=== PATIENT | female | born 1940 | race Two or more races ===

== ENCOUNTER 2019-08-26 06:36 | Inpatient (IN) | payer OTHER ==
[~2019-08-26] VITALS: Ht 152.4 cm; Wt 123.8 kg
[2019-08-26] VITALS (18 sets, daily range): BP systolic 68–166; BP diastolic 34–95
--- NOTE | 2019-08-26 06:58 | NUR ---
BIBRA FOR S/P FOUND ON THE FLOOR. PT DENIED ANY PAIN OR DISCOMFORT AT THIS TIME. DENIED HITTING HER HEAD. -KO. PLACED ON A MONITOR
[2019-08-26] MEDS ORDERED: ADENOSINE 6 MG/2 ML VIAL ONE ×3 (06:59→08:20)
[2019-08-26] MEDS ORDERED: ADENOSINE 6 MG/2 ML VIAL IVP ONE ×2 (07:00→08:30)
--- NOTE | 2019-08-26 07:07 | NUR ---
ADENOSINE GIVEN ORDERED W/ MD AT THE BED SIDE AND PT ON CONT HEART MONITORING .
[2019-08-26 07:08] LABS: BASOPHILS # (AUTO) 0.1 /CMM (0.0-0.2); BASOPHILS % (AUTO) 0.4 % (0.0-2.0); HEMATOCRIT 28 % (33-45); HEMOGLOBIN 9.2 g/dL (11.5-14.8); LYMPHOCYTES # (AUTO) 0.2 /CMM (0.8-4.8); LYMPHOCYTES % (AUTO) 0.9 % (20.0-44.0); MEAN CORPUSCULAR HGB CONC 33 g/dl (31.0-36.0); MEAN CORPUSCULAR VOLUME 87 fL (82-100); MONOCYTES # (AUTO) 0.4 /CMM (0.1-1.30); MONOCYTES % (AUTO) 2.3 % (2.0-12.0); NEUTROPHILS # (AUTO) 17.9 /CMM (1.8-8.9); NEUTROPHILS % (AUTO) 96.4 % (43.0-81.0); PLATELET COUNT (AUTO) 179 /CMM (150-450); RED BLOOD CELL COUNT(AUTO) 3.24 MIL/uL (4.0-5.2); WHITE BLOOD COUNT (AUTO) 18.6 K/uL (4.3-11.0)
--- NOTE | 2019-08-26 07:10 | NUR ---
END TIME FOR NS: [id number]
--- NOTE | 2019-08-26 07:32 | NUR ---
URINE COLLECTED AND SENT TO THE LAB
[2019-08-26 07:35] LABS: CALCIUM, SERUM 7.9 mg/dL (8.5-10.1); CARBON DIOXIDE 19 mmol/L (21-32); CHLORIDE 98 mmol/L (98-107); CREATININE 3.2 mg/dL (0.6-1.3); GLUCOSE 173 mg/dL (74-106); POTASSIUM 3.9 mmol/L (3.5-5.1); SODIUM SERUM 132 mmol/L (136-145); UREA NITROGEN, BLOOD 43 mg/dL (7-18)
[2019-08-26 07:39] LABS: ALANINE AMINOTRANSFERASE 47 U/L (12-78); ALBUMIN 2.3 g/dL (3.4-5.0); ALKALINE PHOSPHATASE 86 U/L (46-116); ASPARTATE AMINOTRANSFERASE 77 U/L (15-37); BILIRUBIN,DIRECT 0.8 mg/dL (0.0-0.2); BILIRUBIN,TOTAL 1.5 mg/dL (0.2-1.0)
--- NOTE | 2019-08-26 07:40 | NUR ---
PT REMAINED ON CONTINUOUS MONITORING AND IVF THERAPY TO MANAGE THE BP. PT REPORTED FEELING MUCH BETTER.
[2019-08-26 07:43] LABS: APPEARANCE,URINE Clear (CLEAR); BILIRUBIN,URINE SMALL (NEGATIVE); BLOOD, URINE Trace-lysed Ery/uL (NEGATIVE); COLOR,URINE Yellow (YELLOW); KETONES,URINE Trace (NEGATIVE); LEUKOCYTE ESTERASE ,URINE Large (NEGATIVE); NITRITE, URINE Negative (NEGATIVE); PROTEIN,URINE 100 mg/dl (NEGATIVE); UGLUCOSE Negative (NEGATIVE)
[2019-08-26 07:44] LABS: BACTERIA,URINE 1+ /HPF (None Seen); PH,URINE >9.0 (5.0-8.0); WBC,URINE 21-50 /HPF (0-3)
[2019-08-26 07:45] LABS: URINE AMORPHOUS PHOSPHATES Few /HPF (None Seen)
--- NOTE | 2019-08-26 07:52 | NUR ---
The patient's heart rate went up - 160's - the patient denies pain or SOB The ER physician was notofied - aware - NS 2 liter on going
[2019-08-26] MEDS ORDERED: VANCOMYCIN 1 GM in IV D5W 250 ML IV ONE (08:00)
[2019-08-26] MEDS ORDERED: NOREPINEPHRINE 8 MG in IV NS 0.9% 250 ML IV ONE (08:00)
[2019-08-26] MEDS ORDERED: CEFTRIAXONE 1GM BAG (ER ONLY) 1 GM/50 ML PIGGYBACK IV ONE (08:00)
[2019-08-26] MEDS ORDERED: IV NS 0.9% 2,000 ML IV ONE (08:00)
--- NOTE | 2019-08-26 08:00 | NUR ---
PT PARTNER CALLED [facility]:[phone] CELLPHONE:[phone]
[2019-08-26] MEDS ORDERED: CEFTRIAXONE 1GM BAG (ER ONLY) 50 ML IV ONE (08:19)
[2019-08-26] MEDS ORDERED: NOREPINEPHRINE 8 MG in IV D5W 500 ML IV PRN (08:30)
--- NOTE | 2019-08-26 08:34 | NUR ---
PT B/P 91/54. LEVOPHED TITRATED TO EFFECT.
[2019-08-26 08:57] LABS: ALCOHOL, BLOOD < 3 mg/dL (0-0)
[2019-08-26] MEDS ORDERED: PHENYLEPHRINE 10 MG/ML VIAL IV ONE (09:00)
[2019-08-26] MEDS ORDERED: IV NS 0.9% 100 ML BAG IV ONE (09:00)
[2019-08-26] MEDS ORDERED: PHENYLEPHRINE 50 MG in IV NS 0.9% 245 ML IV PRN (09:00)
[2019-08-26] MEDS: PHENYLEPHRINE 100 MG in IV NS 0.9% 240 ML IV PRN (09:27)
[2019-08-26] MEDS ORDERED: PHENYLEPHRINE 50 MG in IV NS 0.9% 250 ML IV ONE (09:30)
[2019-08-26] MEDS ORDERED: LIDOCAINE 1%-EPI 1:100,000 50 ML VIAL IJ ONE (10:00)
--- NOTE | 2019-08-26 10:05 | NUR ---
DR BLACKWELL BACK AT BEDSIDE FOR CENTRAL LINE PLACEMENT.
[2019-08-26] MEDS ORDERED: LEVO100T PO (10:38)
[2019-08-26] MEDS ORDERED: HYDR-4384 PO (10:38)
[2019-08-26] MEDS ORDERED: ATOR20TA PO (10:38)
[2019-08-26] MEDS ORDERED: LISI-607 PO (10:38)
[2019-08-26] MEDS ORDERED: TAMS-12 PO (10:38)
--- NOTE | 2019-08-26 10:56 | NUR ---
CALLED [facility].
[2019-08-26] MEDS ORDERED: DILTIAZEM HCL IV 125 MG in IV D5W 100 ML IV ONE (11:00)
--- NOTE | 2019-08-26 11:15 | NUR ---
PAGED CARDIOLOGY ENVIRONMENTAL AID.
--- NOTE | 2019-08-26 11:19 | NUR ---
DR. TAYLOR FROM [facility] GAVE VERBAL AUTHORIZATION TO ADMIT.
--- NOTE | 2019-08-26 11:35 | NUR ---
PAGED [facility].
--- NOTE | 2019-08-26 11:43 | NUR ---
CARDIZEM DRIP DISCONTINUED PER ERMD VERBAL ORDER.
[2019-08-26 11:47] LABS: THYROID STIMULATING HORMONE 1.191 uIU/mL (0.358-3.74)
[2019-08-26] MEDS ORDERED: AMIODARONE 450 MG in IV D5W 250 ML IV ONE (12:00)
[2019-08-26] MEDS ORDERED: AMIODARONE 150 MG/3 ML VIAL IV ONE (12:00)
[2019-08-26] MEDS ORDERED: AMIODARONE 150 MG in IV D5W 100 ML IV ONE (12:00)
--- NOTE | 2019-08-26 12:34 | NUR ---
REPORT TO MAYRA LI FOR CORDELIA. TRANSFERED TO ICU.
--- NOTE | 2019-08-26 12:48 | NUR ---
RECEIVED PT FROM ER IN NO ACUTE DISTRESS CURRENTLY, REQUIRING AMIODARONE, LEVOPHED, AND NEOSYNEPHRINE DRIPS FOR BP AND HR CONTROL. RESPIRATIONS EVEN UNLABORED BUT SOMEWHAT TACHYNPEIC. ON 2L VIA NC, FROM ER WITH O2. SKIN IS WARM, DRY, GOOD COLOR, TENTING EXCEPT ON LOWER LEGS WHICH HAVE EDEMA. PT REPORTS EDEMA IS CHRONIC X "A FEW YEARS". RIGHT IJ TLC PRESENT WITH INFUSIONS RUNNING, BILATERAL WRIST 18G PERIPHERAL IVS PRESENT, SALINE LOCKED. NOTED SMALL SCAB ON LEFT MIDDLE FINGER BUT OTHERWISE SKIN INTACT. 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 IN RM 264, CALL LIGHT GIVEN, BED LOCKED IN LOWEST POSITION WITH SIDE RAILS X2 UP.
--- NOTE | 2019-08-26 13:00 | NUR ---
NEOSYNEPHRINE DRIP REDUCED TO 0.5MCG/KG/MIN
--- NOTE | 2019-08-26 13:00 | NUR ---
DR PINTO AND DR MONSON AT BEDSIDE
[2019-08-26 13:12] LABS: MAGNESIUM 1.8 mg/dL (1.8-2.4)
--- NOTE | 2019-08-26 13:45 | NUR ---
NEOSYNEPHRINE DRIP DISCONTINUED
[2019-08-26 13:46] LABS: ABG BASE EXCESS -5.5 mmol/L; ABG PCO2 29.8 mmHg (35.0-45.0); ABG PH 7.405 (7.350-7.450); ABG PO2 122.2 mmHg (75.0-100.0); AaDO2 42.3 mmHg; COHb 0.1 % (0.5-1.5); MetHb 0.3 % (0.0-1.5); O2Hb 97.6 % (94.0-97.0); SITE, ABG Right Radial
--- NOTE | 2019-08-26 13:52 | NUR ---
DR MARCANO AT BEDSIDE.
--- NOTE | 2019-08-26 13:52 | NUR ---
US HERE FOR RENAL ULTRASOUND
[2019-08-26] MEDS ORDERED: ONDANSETRON HCL/PF 4 MG/2 ML VIAL IVP PRN (14:00)
[2019-08-26] MEDS ORDERED: ZOLPIDEM TARTRATE 5 MG TABLET PO PRN (14:00)
[2019-08-26] MEDS ORDERED: HYDROCODONE/APAP 5/325MG 1 EACH TABLET PO PRN (14:00)
[2019-08-26] MEDS ORDERED: ACETAMINOPHEN 325 MG TABLET PO PRN (14:00)
[2019-08-26] MEDS ORDERED: Z GUARD REMEDY 2 OZ OINT TP PRN (14:00)
[2019-08-26] MEDS ORDERED: MAG HYDROX/AL HYDROX/SIMETH 30 ML UDC PO PRN (14:00)
[2019-08-26] MEDS ORDERED: MAGNESIUM HYDROXIDE 30 ML UDC PO PRN (14:00)
[2019-08-26] MEDS: IV NS 0.9% 1,000 ML IV PRN ×2 (14:07→22:01)
--- NOTE | 2019-08-26 14:30 | NUR ---
LEVOPHED DRIP DISCONTINUED
--- NOTE | 2019-08-26 14:50 | NUR ---
RT PLACED PT ON ROOM AIR Addendum: 08/26/19 at 1540 by MAYRA HOLLOWAY RN D/T RESULTS OF DEREK DIA
--- NOTE | 2019-08-26 15:25 | NUR ---
DR MARCANO PAGED REGARDING LOW BP, NEED INPATIENT ORDER FOR LEVOPHED.
[2019-08-26 15:43] LABS: APPEARANCE,URINE CLOUDY (CLEAR); BILIRUBIN,URINE NEGATIVE (NEGATIVE); BLOOD, URINE LARGE Ery/uL (NEGATIVE); COLOR,URINE YELLOW (YELLOW); KETONES,URINE NEGATIVE (NEGATIVE); LEUKOCYTE ESTERASE ,URINE LARGE (NEGATIVE); NITRITE, URINE NEGATIVE (NEGATIVE); PROTEIN,URINE 30 mg/dl (NEGATIVE); UGLUCOSE NEGATIVE (NEGATIVE)
[2019-08-26 15:55] LABS: BACTERIA,URINE 2+ /HPF (None Seen); SQUAMOUS EPITHELIAL CELL,UR Few /HPF (None Seen); WBC,URINE TOO NUMEROUS TO COUN /HPF (0-3)
--- NOTE | 2019-08-26 16:00 | NUR ---
NOTIFIED PHARMACY OF LEVOPHED ORDER, THEY WILL MIX A BAG
[2019-08-26 16:06] LABS: CREATININE, URINE 121.9 MG/DL (30.0-125.0); URINE TOTAL PROTEIN 78.8 mg/dL (0-11.9)
[2019-08-26 16:30] LABS: EOSINOPHIL,URINE Rare
--- NOTE | 2019-08-26 16:30 | NUR ---
PT REMAINS HYPOTENSIVE BUT IN NO ACUTE DISTRESS, ASYMPTOMATIC, NO COMPLAINTS EXCEPT MILD LOWER BACK SORENESS WHICH IS RELIEVED WITH REPOSITIONING THE HEAD OF BED. AWAITING LEVOPHED FROM PHARMACY.
[2019-08-26] MEDS: NOREPINEPHRINE 8 MG in IV NS 0.9% 242 ML IV PRN (16:59)
--- NOTE | 2019-08-26 17:00 | NUR ---
LEVOPHED RESTARTED AT 0.1MCG/KG/HR D/T HYPOTENSION.
--- NOTE | 2019-08-26 18:14 | NUR ---
PT BECAME SOB AND NOTED HR INCREASED TO 100'S. RT CALLED AND AT BEDSIDE FOR ASSESSMENT. NOTIFIED BRANDING MACHINE OPERATOR OF PT STATUS.
--- NOTE | 2019-08-26 18:18 | NUR ---
PER RT ESTEVAN, BREATH SOUNDS CLEAR AND PT DOES NOT NEED ANY RESPIRATORY INTERVENTIONS CURRENTLY. CONTINUE 2L O2 AND ENCOURAGE RELAXATION. PT APPEARS VERY ANXIOUS, REPEATEDLY STATING THAT "ITS PAST TIME I TAKE MY BLOOD PRESSURE MEDS", EXPLAINED THAT PT HAS LOW BP CURRENTLY AND CANNOT GET ANTIHYPERTENSIVES.
--- NOTE | 2019-08-26 19:20 | NUR ---
ENVIRONMENTAL TECHNICAL OFFICER NOTE RECEIVED PATIENT IN BED RESTING WITH HOB ELEVATED. BREATHING EVEN, ON O2 2LPM VIA NC. A&O X 3. ABLE TO MAKE NEEDS KNOWN. SPEECH IS CLEAR. ON HAWKINS, URINE IS CLOUDY WITH SEDIMENTS, YELLOW IN COLOR. ON LEVOPHED @ 0.1 MCG/KG/MIN. ON AMIODARONE @ 0.5 MCG/KG/MIN. IV SITE ON RIGHT SIDE IJ, PATENT. IV SITES ON BILATERAL WRISTS, CLEAN AND PATENT. CALL LIGHT IS WITHIN REACH. WILL CONTINUE TO MONITOR.
--- NOTE | 2019-08-26 20:30 | NUR ---
TYPESETTERS PRINTER NOTE NOTED PATIENT WITH LABORED BREATHING, SATURATION IN LOW 80'S. INCREASED O2 TO 4 LPM VIA NC. O2 SAT STILL ON MID 80'S. PLACED PATIENT ON O2 10 L VIA FACE MASK. O2 SAT IN LOW 90'S. WILL CONTINUE TO CLOSELY MONITOR.
[2019-08-26] MEDS: CEFEPIME 1 GM in IV D5W 50 ML IV SCH (20:57)
[2019-08-26] MEDS: HEPARIN SODIUM, PORCINE 5000 UNITS/1 ML VIAL SQ SCH (20:58)
[2019-08-26 22:55] LABS: ABG BASE EXCESS -5.2 mmol/L; ABG OXYGEN SATURATION 99.4 % (92.0-98.5); ABG PCO2 27.7 mmHg (35.0-45.0); ABG PO2 226.7 mmHg (75.0-100.0); AaDO2 458.6 mmHg; COHb 0.2 % (0.5-1.5); MetHb 0.1 % (0.0-1.5); O2Hb 99.1 % (94.0-97.0); SITE, ABG Left Radial
[2019-08-27] VITALS (46 sets, daily range): BP systolic 45–158; BP diastolic 15–98
[2019-08-27] MEDS ORDERED: SODIUM BICARBONATE SYR 50 MEQ/50 ML DISP.SYRIN IV ONE
--- NOTE | 2019-08-27 00:30 | NUR ---
DIE EQUIPMENT OPERATOR NOTE RECEIVED ORDERS FROM MARILEE RAMSEY NP FOR BICARB SODIUM 50 ML IV FOR HCO3 OF 18 PER ABG RESULTS. ORDERS CARRIED OUT. WILL CONTINUE TO MONITOR.
[2019-08-27] MEDS ORDERED: NOREPINEPHRINE 4 MG/4 ML AMPUL IV ONE (02:33)
[2019-08-27] MEDS: NOREPINEPHRINE 8 MG in IV NS 0.9% 242 ML IV PRN ×6 (02:56→19:32)
[2019-08-27 05:18] LABS: BASOPHILS % (AUTO) 0.1 % (0.0-2.0); EOSINOPHILS % (AUTO) 0.1 % (0.0-6.0); HEMATOCRIT 30 % (33-45); HEMOGLOBIN 9.6 g/dL (11.5-14.8); LYMPHOCYTES # (AUTO) 0.3 /CMM (0.8-4.8); LYMPHOCYTES % (AUTO) 0.9 % (20.0-44.0); MEAN CORPUSCULAR HGB CONC 32 g/dl (31.0-36.0); MEAN CORPUSCULAR VOLUME 87 fL (82-100); MONOCYTES # (AUTO) 0.8 /CMM (0.1-1.30); MONOCYTES % (AUTO) 2.2 % (2.0-12.0); NEUTROPHILS % (AUTO) 96.7 % (43.0-81.0); PLATELET COUNT (AUTO) 207 /CMM (150-450); RED BLOOD CELL COUNT(AUTO) 3.43 MIL/uL (4.0-5.2)
[2019-08-27 05:36] LABS: ALANINE AMINOTRANSFERASE 49 U/L (12-78); ALBUMIN 2.2 g/dL (3.4-5.0); ALKALINE PHOSPHATASE 106 U/L (46-116); ASPARTATE AMINOTRANSFERASE 72 U/L (15-37); B-TYPE NATRIURETIC PEPTIDE 8527 PG/ML (0-125); CALCIUM, SERUM 7.6 mg/dL (8.5-10.1); CARBON DIOXIDE 20 mmol/L (21-32); CHLORIDE 100 mmol/L (98-107); CREATINE KINASE, TOTAL 238 U/L (26-192); GLUCOSE 157 mg/dL (74-106); MAGNESIUM 1.8 mg/dL (1.8-2.4); PHOSPHORUS 2.9 mg/dL (2.5-4.9); POTASSIUM 4.3 mmol/L (3.5-5.1); SODIUM SERUM 134 mmol/L (136-145); TOTAL PROTEIN, SERUM 6.2 g/dL (6.4-8.2); UREA NITROGEN, BLOOD 40 mg/dL (7-18)
[2019-08-27 05:38] LABS: WHITE BLOOD COUNT (AUTO) 38.2 K/uL (4.3-11.0)
[2019-08-27 05:57] LABS: BAND % (MANUAL) 14 % (0.0-5.0); LYMPHOCYTES % (MANUAL) 2 % (16-48); NEUTROPHILS % (MANUAL) 82 (42-76)
[2019-08-27 05:58] LABS: MONOCYTES % (MANUAL) 2 % (0-11.0)
--- NOTE | 2019-08-27 06:00 | NUR ---
ANALYTICAL CONSULTANT NOTE RECEIVED CRITICAL LAB VALUE OF WBC 38.2. RESULTS RELAYED TO MARILEE RAMSEY NP. RECEIVED ORDERS FOR VANCOMYCIN 1 GM Q12H PHARMACY TO DOSE. ORDERS NOTED AND CARRIED OUT. WILL CONTINUE TO MONITOR.
--- NOTE | 2019-08-27 07:19 | NUR ---
POWER AND RECOVERY SUPERINTENDENT NOTE PATIENT CONTINUES TO HAVE SATURATION OF 88-91% ON 8 L O2 VIA MASK. PATIENT REQUESTED TO RETURN BACK TO NASAL CANULA. PLACED PATIENT ON O2 6 L VIA NC. PATIENT SATURATED BETWEEN 87-90%. RT TERI AWARE OF PATIENT CONDITION. PATIENT IS A&O X3. ABLE TO MAKE NEEDS KNOWN. LEVOPHED DRIP ADJUSTED PER PROTOCOL. ALL DUE MEDS GIVEN AND TOLERATED WELL. PATIENT IS KEPT CLEAN AND DRY. NO BM THIS SHIFT. WILL ENDORSE TO AM SHIFT RN FOR CONTINUATION OF CARE.
--- NOTE | 2019-08-27 07:20 | NUR ---
RN OPENING NOTE: RECEIVED PATIENT IN BED. AWAKE, ALERT AND ORIENTED X4. PATIENT APPEARS ANXIOUS AND COMPLAINTS OF BEING "NOT ABLE TO BREATHE". ON CONT. O2 VIA NASAL CANNULA (PER HER REQUEST) @ 8LPM AND NON COMPLIANCE TO NC NOTED. SATURATION IN THE 90S WITH REPORT OF SOME EPISODES OF BEING IN THE 70S FROM PREVIOUS SHIFT. REINFORCEMENT OF PROPER OXYGEN USE TO BE DONE AND WILL REPORT TO CARDIAC CATH TECHNOLOGIST ABOUT CURRENT STATUS. IV SITES CLEAN, DRY PATENT AND INTACT. NO PAIN REPORTED. HAWKINS CATHETER DRAINING JERRY YELLOW URINE. TELE MONITORING SHOWING SINUS RHYTHM WITH SOME SINUS TACHYCARDIA NOTED ON PATIENT. CALL LIGHT IN REACH. BED LOCKED, LOW AND AT SEMI-LAU'S POSITION. SAFETY ENSURED AND OBSERVED. SIDE RAILS UP X3. WILL CONTINUE TO MONITOR.
[2019-08-27] MEDS: LEVOTHYROXINE SODIUM 100 MCG TABLET PO SCH (08:16)
[2019-08-27] MEDS ORDERED: CEFTRIAXONE 1 G in IV D5W 50 ML IV SCH (09:00)
[2019-08-27] MEDS: AMIODARONE HCL 200 MG TABLET PO SCH ×2 (09:00→18:01)
--- NOTE | 2019-08-27 09:00 | NUR ---
RN NOTE: STAT ABG ORDER RECEIVED FROM DR. PINTO. NOTED AND CARRIED OUT.
[2019-08-27] MEDS ORDERED: IV NS 0.9% 1,000 ML IV PRN (09:05)
[2019-08-27 09:27] LABS: ABG BASE EXCESS -8.2 mmol/L; ABG OXYGEN SATURATION 53.1 % (92.0-98.5); ABG PCO2 46.2 mmHg (35.0-45.0); ABG PH 7.232 (7.350-7.450); ABG PO2 31.1 mmHg (75.0-100.0); AaDO2 237.2 mmHg; COHb 0.4 % (0.5-1.5); MetHb 0.3 % (0.0-1.5); O2Hb 52.7 % (94.0-97.0); SITE, ABG Right Radial; VENT MODE, BG NASAL CANNULA
[2019-08-27] MEDS ORDERED: VANCOMYCIN 1 GM in IV NS 0.9% 250 ML IV SCH (10:00)
[2019-08-27] MEDS ORDERED: BUMETANIDE INJ 4 MG in IV D5W 24 ML IV ONE (10:00)
[2019-08-27] MEDS ORDERED: VANCOMYCIN 1 GM in IV D5W 250 ML IV SCH (10:00)
[2019-08-27] MEDS: PROPOFOL 100 ML IV PRN ×3 (10:15→21:07)
--- NOTE | 2019-08-27 10:15 | NUR ---
RN NOTE: PATIENT INTUBATED SUCCESSFULLY. WITH FOLLOW-UP ORDERS BY DR. PINTO ACKNOWLEDGED. WILL CONTINUE TO MONITOR PATIENT'S CONDITION.
--- NOTE | 2019-08-27 10:19 | NUR ---
RT NOTE Pt rec'd on 6lnc. ABG taken and critical notes given to RN. Pt showed increased WOB and low O2 saturations. Pt orally intubated via ETT sz #7.0 secured @ 20cm at the lipline. Pt placed on [facility] vent on noted settings as charted. B/S clear bilaterally and good o2 saturation post intubation. Post intubation ABG to be taken in 1 hr. Waiting on Chest Xray Results. Alarms are set and audible. Ambu bag bedside. Vent plugged into red outlet. Will continue to monitor closely. Addendum: 08/27/19 at 1026 by TERI ORTEZ RT Amended: Links added.
[2019-08-27] MEDS: PANTOPRAZOLE 40 MG VIAL IV SCH (11:00)
--- NOTE | 2019-08-27 11:00 | NUR ---
RN NOTE: INFORMED PATIENT'S FAMILY ABOUT CURRENT SITUATION, INFORMED ABOUT ABG RESULTS AND INTUBATION THAT HAPPENED, CURRENT TREATMENT BEING DONE AND PATIENT BEING RULED OUT FOR COVID-19. PATIENT'S FAMILY ACKNOWLEDGED INFORMATION AND WANTED TO SPEAK WITH HER CURRENT PROVIDER REGARDING THE PROGRESS OF CARE. WILL INFORM DR. RUPESH MARCANO ABOUT IT.
[2019-08-27] MEDS: VANCOMYCIN 1 GM in IV D5W 250 ML IV SCH (11:08)
[2019-08-27] MEDS: HEPARIN SODIUM, PORCINE 5000 UNITS/1 ML VIAL SQ SCH ×2 (11:22→21:28)
[2019-08-27 11:41] LABS: ABG BASE EXCESS -7.4 mmol/L; ABG OXYGEN SATURATION 98.4 % (92.0-98.5); ABG PCO2 46.1 mmHg (35.0-45.0); ABG PH 7.247 (7.350-7.450); ABG PO2 147.4 mmHg (75.0-100.0); AaDO2 519.5 mmHg; COHb 0.3 % (0.5-1.5); MetHb 0.1 % (0.0-1.5); PEEP,BG 5 cm H2O; VT, ABG 500 mL
--- NOTE | 2019-08-27 11:51 | NUR ---
vent changes below per dr. leavitt: VT 550 FIO2 70% Addendum: 08/27/19 at 1152 by AXEL BLAS RT Amended: Links added.
[2019-08-27] MEDS ORDERED: DEXTROSE 50%-WATER 50 ML DISP.SYRIN IV PRN (12:00)
[2019-08-27] MEDS: IV D5/0.45 NACL 1,000 ML IV PRN ×2 (12:30→20:00)
[2019-08-27] MEDS ORDERED: NOREPINEPHRINE 8MG/250ML RTU 250 ML IV ONE (13:39)
--- NOTE | 2019-08-27 13:39 | NUR ---
RN NOTE LEVOPHED FOR 1339 ADMINISTERED THROUGH EXISTING PRN ORDER IN [facility]
[2019-08-27] MEDS ORDERED: FEE PK DOSING 1 MIN EA MC ONE (13:50)
--- NOTE | 2019-08-27 14:00 | NUR ---
RN NOTE: INFORMED DR. RUPESH MARCANO ABOUT PATIENT'S FAMILY REQUEST FOR PROVIDER TO CALL THEM. HE ACKNOWLEDGED INFORMATION.
--- NOTE | 2019-08-27 17:00 | NUR ---
RN NOTE: PATIENT PULLED OUT JUGULAR IV SITE. CATHETER INTACT PER INSPECTION. APPLIED PRESSURE TO SITE. INFORMED MD AND OBTAINED ORDER FOR PICC LINE INSERTION, INFORMED WAGNER, SHELTER SUPERVISOR.
--- NOTE | 2019-08-27 17:30 | NUR ---
RN NOTE: INFORMED DR. PINTO OF PATIENT HAVING SVT SINCE PULLING OUT OF JUGULAR IV SITE. INFORMED OF CURRENT VITAL SIGNS AND SITUATION. RECEIVED ORDER FOR ADENOSINE 6MG THEN 12MG IV PUSH. NOTED AND CARRIED OUT.
[2019-08-27] MEDS ORDERED: ADENOSINE 6 MG/2 ML VIAL IVP ONE ×2 (18:00)
[2019-08-27] MEDS: BLOOD SUGAR DIAGNOSTIC 1 EACH STRIP IN SCH ×2 (18:00→18:01)
--- NOTE | 2019-08-27 18:00 | NUR ---
RN NOTE ADENOSINE 12MG NOT ADMINISTERED DUE PATIENT CONVERTING TO SINUS RHYTHM IN THE 80S. WILL RETURN TO PHARMACY
--- NOTE | 2019-08-27 19:20 | NUR ---
SELLING SPECIALIST NOTE RECEIVED PATIENT IN BED RESTING, SEDATED, ON VENT. BREATHING EVEN AND NON LABORED. IN NO APPARENT DISTRESS NOTED AT THIS TIME. ON DIPRIVAN DRIP @ 10 MCG/KG/MIN. RESPONSIVE TO LOCALIZED PAIN. ON LEVOPHED DRIP. NOTED TACHYCARDIA ON MONITOR. ON BILATERAL SOFT WRIST RESTRAINTS. WILL CONTINUE TO MONITOR.
--- NOTE | 2019-08-27 19:30 | NUR ---
RN CLOSING NOTE: PATIENT IN BED AND SEDATED. ON CONT. ON MECHANICAL VENTILATION VIA ETT AND BEING TOLERATED WELL. SATURATION AT 97%. ON ISOLATION PRECAUTIONS TO RULE OUT COVID. IV SITE CLEAN, DRY PATENT AND INTACT WITH INFUSION OF PROPOFOL, LEVOPHED AND BUMEX INFUSING. NO PAIN NOTED ON PATIENT. HAWKINS CATHETER DRAINING JERRY YELLOW URINE. TELE MONITORING SHOWING SINUS RHYTHM NOTED ON PATIENT. CALL LIGHT IN REACH. BED LOCKED, LOW AND AT SEMI-LAU'S POSITION. SAFETY ENSURED AND OBSERVED. SIDE RAILS UP X3. PICC LINE NURSE WILL COME AFTER 1900 FOR INSERTION PER SHIPPING SUPPORT CLERK. ENDORSED TO ONCOMING SHIFT FOR CORDELIA.
[2019-08-27] MEDS: INSULIN REGULAR, HUMAN 100 UNIT/ML 3 ML VIAL SQ PRN (19:34)
--- NOTE | 2019-08-27 20:45 | NUR ---
RN NOTE: ADENOSINE 12MG GIVEN TO TIANA IN PHARMACY
[2019-08-27] MEDS: CEFEPIME 1 GM in IV D5W 50 ML IV SCH (21:06)
[2019-08-27] MEDS: NOREPINEPHRINE 32 MG in IV NS 0.9% 218 ML IV PRN (21:31)
[2019-08-28] VITALS (48 sets, daily range): BP systolic 60–155; BP diastolic 26–88
[2019-08-28] MEDS: PHENYLEPHRINE 100 MG in IV NS 0.9% 240 ML IV PRN ×3 (00:03→18:07)
--- NOTE | 2019-08-28 00:05 | NUR ---
ORACLE SOA CONSULTANT NOTE NEW PICC LINE INSERTED BY PICC LINE NURSE AROUND THIS TIME. PICC LINE PLACED ON RAKESH, TLC.
[2019-08-28] MEDS: BLOOD SUGAR DIAGNOSTIC 1 EACH STRIP IN SCH ×4 (00:45→18:17)
[2019-08-28] MEDS: INSULIN REGULAR, HUMAN 100 UNIT/ML 3 ML VIAL SQ PRN ×2 (00:46→18:25)
--- NOTE | 2019-08-28 04:00 | NUR ---
CIGAR BRANDER NOTE PATIENT TOLERATED BED BATH WELL. NO BM NOTED AT THIS TIME. WILL CONTINUE TO MONITOR.
[2019-08-28 05:07] LABS: BASOPHILS # (AUTO) 0.1 /CMM (0.0-0.2); BASOPHILS % (AUTO) 0.2 % (0.0-2.0); EOSINOPHILS % (AUTO) 3.5 % (0.0-6.0); HEMATOCRIT 27 % (33-45); LYMPHOCYTES % (AUTO) 2.2 % (20.0-44.0); MEAN CORPUSCULAR HGB CONC 33 g/dl (31.0-36.0); MEAN CORPUSCULAR VOLUME 86 fL (82-100); MONOCYTES # (AUTO) 1.4 /CMM (0.1-1.30); MONOCYTES % (AUTO) 3.1 % (2.0-12.0); NEUTROPHILS # (AUTO) 40.8 /CMM (1.8-8.9); PLATELET COUNT (AUTO) 173 /CMM (150-450); RED BLOOD CELL COUNT(AUTO) 3.14 MIL/uL (4.0-5.2)
[2019-08-28 05:19] LABS: IRON, SERUM 18 ug/dl (50-175); TOTAL IRON BINDING CAPACITY 143 ug/dl (250-450)
[2019-08-28 05:29] LABS: FERRITIN 557 ng/mL (8-388)
[2019-08-28 05:34] LABS: ALANINE AMINOTRANSFERASE 41 U/L (12-78); ALBUMIN 1.8 g/dL (3.4-5.0); ALKALINE PHOSPHATASE 111 U/L (46-116); ASPARTATE AMINOTRANSFERASE 57 U/L (15-37); BILIRUBIN,TOTAL 1.8 mg/dL (0.2-1.0); CALCIUM, SERUM 7.2 mg/dL (8.5-10.1); CARBON DIOXIDE 23 mmol/L (21-32); CHLORIDE 103 mmol/L (98-107); CREATININE 3.3 mg/dL (0.6-1.3); GLUCOSE 132 mg/dL (74-106); MAGNESIUM 1.9 mg/dL (1.8-2.4); PHOSPHORUS 3.2 mg/dL (2.5-4.9); SODIUM SERUM 137 mmol/L (136-145); TOTAL PROTEIN, SERUM 5.9 g/dL (6.4-8.2); UREA NITROGEN, BLOOD 42 mg/dL (7-18)
[2019-08-28 05:39] LABS: WHITE BLOOD COUNT (AUTO) 44.8 K/uL (4.3-11.0)
[2019-08-28] MEDS ORDERED: IV NS 0.9% 1,000 ML IV ONE (06:30)
--- NOTE | 2019-08-28 06:30 | NUR ---
GLOBAL CATEGORY MANAGER NOTE RECEIVED CRITICAL LAB RESULT OF WBC 44.8. CHARGE COORDINATOR MARILEE RAMSEY MADE AWARE. RECEIVED NEW ORDER FOR 1 LITER NS BOLUS. ORDERS NOTED AND CARRIED OUT. WILL CONTINUE TO MONITOR.
[2019-08-28] MEDS: PROPOFOL 100 ML IV PRN ×2 (06:33→17:08)
[2019-08-28 06:36] LABS: BAND % (MANUAL) 9 % (0.0-5.0); LYMPHOCYTES % (MANUAL) 2 % (16-48); MONOCYTES % (MANUAL) 3 % (0-11.0); NEUTROPHILS % (MANUAL) 86 (42-76)
--- NOTE | 2019-08-28 07:41 | NUR ---
RN OPENING NOTES RECEIVED PATIENT RESTING COMFORTABLY IN BED, NO S/SX OF DISTRESS. PT IS SEDATED ON 10 MCG/MIN, TOLERATING WELL. PT IS ON LEVO DRIP AT 0.2 MCG/MIN AND VARINDER DRIP AT 1.8 MCG/MIN, TOLERATING WELL, BP WNL. PT IS ON MECH VENT VIA ETT, TOLERATING VENT SETTINGS WELL. IV SITE ON L WRIST 18 G IS PATENT AND INTACT, RAKESH PICC, PATENT AND INTACT. SAFETY MEASURES HAVE BEEN IMPLEMENTED, SIDE RAILS UP X2, CALL LIGHT IS WITHIN REACH, BED IS IN LOWEST AND LOCKED POSITION, WILL CONTINUE TO MONITOR FOR ANY CHANGES.
--- NOTE | 2019-08-28 07:54 | NUR ---
GUN STOCK CHECKER CLOSING NOTE PATIENT REMAINED SEDATED THROUGHOUT THE NIGHT. LEVOPHED, VARINDER, AND PROPOFOL DRIPS ADJUSTED PER PROTOCOL. ALL DUE MEDS GIVEN AND TOLERATED WELL. PATIENT KEPT CLEAN, DRY, AND COMFORTABLE. ENDORSED TO AM SHIFT RN FOR CONTINUATION OF CARE.
[2019-08-28] MEDS: IV D5/0.45 NACL 1,000 ML IV PRN ×2 (08:06→22:00)
[2019-08-28 08:07] LABS: *SPE A/G RATIO 0.7 (0.7-1.7); *SPE ALBUMIN 2.2 g/dL (2.9-4.4); *SPE ALPHA-1-GLOBULIN 0.5 g/dL (0.0-0.4); *SPE ALPHA-2-GLOBULIN 1.1 g/dL (0.4-1.0); *SPE BETA GLOBULIN 0.8 g/dL (0.7-1.3); *SPE M-SPIKE Not Observed g/dL (Not Observed); *SPEGAMMA GLOBULIN 0.6 g/dL (0.4-1.8); PTH, INTACT 179 pg/mL (15-65)
[2019-08-28 08:11] LABS: ABG BASE EXCESS -3.9 mmol/L; ABG OXYGEN SATURATION 97.1 % (92.0-98.5); ABG PCO2 41.8 mmHg (35.0-45.0); ABG PH 7.334 (7.350-7.450); ABG PO2 110.6 mmHg (75.0-100.0); AaDO2 343.6 mmHg; COHb 0.3 % (0.5-1.5); MetHb 0.3 % (0.0-1.5); O2Hb 96.5 % (94.0-97.0); PEEP,BG 5 cm H2O; SITE, ABG Right Radial; VT, ABG 550 mL
[2019-08-28] MEDS: LEVOTHYROXINE SODIUM 100 MCG TABLET PO SCH (08:21)
[2019-08-28] MEDS: PANTOPRAZOLE 40 MG VIAL IV SCH (08:56)
[2019-08-28] MEDS: AMIODARONE HCL 200 MG TABLET PO SCH ×4 (08:57→17:05)
[2019-08-28] MEDS: HEPARIN SODIUM, PORCINE 5000 UNITS/1 ML VIAL SQ SCH (09:03)
--- NOTE | 2019-08-28 09:06 | NUR ---
RN NOTES CVP OF [address] WOMACK[address] NO ORDERS FOR DIRUETICS AT THIS TIME, WILL CONTINUE TO MONITOR
[2019-08-28] MEDS: VANCOMYCIN 1 GM in IV D5W 250 ML IV SCH (09:09)
--- NOTE | 2019-08-28 09:34 | NUR ---
RN NOTES PATIENT HAS ALREADY RECEIVED 0900 DOSE OF AMIODARONE PRIOR TO FREQUENCY ADJUSTMENT, WILL CONTINUE WITH 1300 DOSE, WILL CONTINUE TO MONITOR
[2019-08-28] MEDS: SOD FERRIC GLUC 125 MG in IV NS 0.9% 100 ML IV SCH (12:02)
[2019-08-28] MEDS ORDERED: SOD FERRIC GLUC 125 MG in IV NS 0.9% 100 ML IV SCH (14:00)
[2019-08-28] MEDS: APIXABAN 2.5 MG TABLET PO SCH (17:05)
--- NOTE | 2019-08-28 19:26 | NUR ---
RN CLOSING NOTES PATIENT IS RESTING IN BED COMFORTABLY AT THIS TIME, ON MECH VENT, TOLERATING SETTINGS WELL. PT IS ON DIPRIVAN AT 10 MCG/MIN, AND VARINDER AT 1.5 MCG/MIN, TOLERATING WELL. PT NEEDS HAVE BEEN MET, NO ACUTE CHANGES OCCURRED. SAFETY MEASURES HAVE BEEN IMPLEMENTED, CALL LIGHT IS WITHIN REACH, BED IS IN LOWEST AND LOCKED POSITION, SIDE RAILS UP X3, PT HAS BEEN ENDORSED FOR CORDELIA
[2019-08-28] MEDS: CEFEPIME 1 GM in IV D5W 50 ML IV SCH (22:21)
[2019-08-29] VITALS (83 sets, daily range): BP systolic 62–150; BP diastolic 32–96
[2019-08-29] MEDS: PROPOFOL 100 ML IV PRN ×4 (00:28→23:56)
[2019-08-29] MEDS: PHENYLEPHRINE 100 MG in IV NS 0.9% 240 ML IV PRN ×2 (01:42→09:02)
[2019-08-29 05:53] LABS: BASOPHILS # (AUTO) 0.1 /CMM (0.0-0.2); BASOPHILS % (AUTO) 0.2 % (0.0-2.0); EOSINOPHILS % (AUTO) 0.3 % (0.0-6.0); HEMATOCRIT 26 % (33-45); HEMOGLOBIN 8.7 g/dL (11.5-14.8); LYMPHOCYTES # (AUTO) 1.2 /CMM (0.8-4.8); LYMPHOCYTES % (AUTO) 3.6 % (20.0-44.0); MEAN CORPUSCULAR HGB CONC 34 g/dl (31.0-36.0); MEAN CORPUSCULAR VOLUME 86 fL (82-100); MONOCYTES # (AUTO) 1.5 /CMM (0.1-1.30); MONOCYTES % (AUTO) 4.3 % (2.0-12.0); NEUTROPHILS # (AUTO) 31.1 /CMM (1.8-8.9); NEUTROPHILS % (AUTO) 91.6 % (43.0-81.0); PLATELET COUNT (AUTO) 160 /CMM (150-450); RED BLOOD CELL COUNT(AUTO) 2.96 MIL/uL (4.0-5.2)
[2019-08-29 06:34] LABS: ALANINE AMINOTRANSFERASE 31 U/L (12-78); ALBUMIN 1.5 g/dL (3.4-5.0); ALKALINE PHOSPHATASE 99 U/L (46-116); ASPARTATE AMINOTRANSFERASE 43 U/L (15-37); CALCIUM, SERUM 6.3 mg/dL (8.5-10.1); CARBON DIOXIDE 21 mmol/L (21-32); CHLORIDE 101 mmol/L (98-107); CREATININE 2.9 mg/dL (0.6-1.3); GLUCOSE 160 mg/dL (74-106); MAGNESIUM 1.7 mg/dL (1.8-2.4); PHOSPHORUS 2.9 mg/dL (2.5-4.9); POTASSIUM 3.6 mmol/L (3.5-5.1); SODIUM SERUM 135 mmol/L (136-145); TOTAL PROTEIN, SERUM 5.1 g/dL (6.4-8.2); UREA NITROGEN, BLOOD 46 mg/dL (7-18)
[2019-08-29] MEDS: BLOOD SUGAR DIAGNOSTIC 1 EACH STRIP IN SCH ×5 (06:54→23:36)
[2019-08-29] MEDS: INSULIN REGULAR, HUMAN 100 UNIT/ML 3 ML VIAL SQ PRN ×2 (07:20→11:55)
--- NOTE | 2019-08-29 08:00 | NUR ---
ICU/RN: INITIAL NOTES,AM RECEIVED REPORT FROM NIGHT NURSE. PT INTUBATED AND SEDATED, ON VENT SETTINGS ORDERED BY MD, NO ACUTE DISTRESS NOTED. A.FIB ON TELE. HAWKINS CATH IN PLACE, DRAINING YELLOW URINE. LOW GRADE TEMP NOTED. COOLING MEASURES TAKEN. WILL REASSESS. PT CURRENTLY NPO, NG TUBE FLUSHED AND CLAMPED. ALL NEEDS WILL BE ATTENDED TO, SAFETY MEASURES TAKEN, BED IN LOW POSITION, SIDE RAILS UP, CALL LIGHT WITHIN REACH. BILATERAL SOFT RESTRAINTS IN PLACE, ASSESSED PER PROTOCOL
[2019-08-29 08:47] LABS: LYMPHOCYTES % (MANUAL) 4 % (16-48); MONOCYTES % (MANUAL) 4 % (0-11.0); NEUTROPHILS % (MANUAL) 92 (42-76)
[2019-08-29] MEDS: AMIODARONE HCL 200 MG TABLET PO SCH ×3 (08:56→18:05)
[2019-08-29] MEDS: LEVOTHYROXINE SODIUM 100 MCG TABLET PO SCH (08:56)
[2019-08-29] MEDS: APIXABAN 2.5 MG TABLET PO SCH ×2 (08:57→18:04)
[2019-08-29] MEDS: PANTOPRAZOLE 40 MG/PACK PACK NG SCH (09:00)
[2019-08-29] MEDS: Magnesium 1GM/D5W 100ML PREMIX 100 ML IV SCH ×2 (09:00→10:21)
[2019-08-29] MEDS: SOD FERRIC GLUC 125 MG in IV NS 0.9% 100 ML IV SCH (09:09)
[2019-08-29 09:23] LABS: ABG BASE EXCESS -4.8 mmol/L; ABG OXYGEN SATURATION 97.3 % (92.0-98.5); ABG PCO2 32.3 mmHg (35.0-45.0); ABG PH 7.395 (7.350-7.450); ABG PO2 98.1 mmHg (75.0-100.0); AaDO2 294.2 mmHg; COHb 0.2 % (0.5-1.5); MetHb 0.3 % (0.0-1.5); O2Hb 96.8 % (94.0-97.0); PEEP,BG 5 cm H2O; SITE, ABG Left Radial; VENT MODE, BG AC 16/550/60/+5; VT, ABG 550 mL
--- NOTE | 2019-08-29 10:00 | NUR ---
ICU/RN: SEDATION VACATION DONE. PT OPENS EYES, FOLLOW COMMANDS. TACHYPNEIC AND AGITATED, RESUMED SEDATION PER PROTOCOL
[2019-08-29] MEDS: IV NS 0.9% 1,000 ML IV PRN (10:34)
[2019-08-29] MEDS: VANCOMYCIN 1 GM in IV D5W 250 ML IV SCH (10:45)
--- NOTE | 2019-08-29 11:00 | NUR ---
ICU/RN: CAME TO SECURITY TO DIRECT MARKETING SPECIALIST 'S [employer]. BELONGINGS FORM SIGNED AND PLACED IN CHART.
[2019-08-29] MEDS: DIGOXIN INJ 0.5 MG/2 ML AMPUL IV SCH ×3 (11:49→23:39)
--- NOTE | 2019-08-29 19:11 | NUR ---
ICU/RN: ENDING NOTES,AM REPORT WILL BE ENDORSED TO NIGHT NURSE FOR CORDELIA. PT INTUBATED AND SEDATED, ON VENT SETTINGS ORDERED NO DISTRESS NOTED. CONTROLLED A.FIB ON TELE. PICC LINE PATENT AND INTACT, LOW DOSE VARINDER FOR BP SUPPORT. NO S/S OF INFECTION OR INFILTRATION NOTED. NG TUBE CLAMPED. ALL NEEDS ATTENDED TO, SAFETY MEASURE TAKEN, BED IN LOW POSITION, SIDE RAILS.
--- NOTE | 2019-08-29 19:30 | NUR ---
RN OPENING NOTES: Received pt resting in bed, sedated. Intubated, tolerating mechanical vent settings well. No respiratory distress noted. On tele monitor showing A-fib. Has NGT flushed and clamped, pt NPO status. Has SUPERVISOR COVERING AND LINING restraints. Released and circulation checked. Has LW #18 and RAKESH PICC. Diprivan running at 20mcg/hr, NS running at 40cc/hr and Franklyn running at 2.0mcg/hr. BP stable. Will titrate per protocol. Has poole cath in place draining yellow colored urine via gravity. Safety measures in place. Will continue to monitor.
[2019-08-29] MEDS: CEFEPIME 1 GM in IV D5W 50 ML IV SCH (20:37)
--- NOTE | 2019-08-29 23:37 | NUR ---
RN NOTE: Pt's BS 121. No insulin per NPO sliding scale.
[2019-08-30] VITALS (78 sets, daily range): BP systolic 84–133; BP diastolic 41–82
[2019-08-30] MEDS ORDERED: PHENYLEPHRINE 10 MG/ML VIAL ONE (00:35)
[2019-08-30] MEDS: PHENYLEPHRINE 100 MG in IV NS 0.9% 240 ML IV PRN ×2 (02:42→17:35)
[2019-08-30 05:11] LABS: BASOPHILS # (AUTO) 0.1 /CMM (0.0-0.2); BASOPHILS % (AUTO) 0.3 % (0.0-2.0); EOSINOPHILS % (AUTO) 0.6 % (0.0-6.0); HEMATOCRIT 30 % (33-45); HEMOGLOBIN 9.9 g/dL (11.5-14.8); LYMPHOCYTES # (AUTO) 1.2 /CMM (0.8-4.8); LYMPHOCYTES % (AUTO) 4.3 % (20.0-44.0); MEAN CORPUSCULAR HGB CONC 33 g/dl (31.0-36.0); MEAN CORPUSCULAR VOLUME 87 fL (82-100); MONOCYTES # (AUTO) 1.5 /CMM (0.1-1.30); MONOCYTES % (AUTO) 5.4 % (2.0-12.0); NEUTROPHILS # (AUTO) 25.5 /CMM (1.8-8.9); NEUTROPHILS % (AUTO) 89.4 % (43.0-81.0); PLATELET COUNT (AUTO) 178 /CMM (150-450); RED BLOOD CELL COUNT(AUTO) 3.47 MIL/uL (4.0-5.2); WHITE BLOOD COUNT (AUTO) 28.5 K/uL (4.3-11.0)
[2019-08-30 05:36] LABS: ALANINE AMINOTRANSFERASE 22 U/L (12-78); ALBUMIN 1.6 g/dL (3.4-5.0); ALKALINE PHOSPHATASE 91 U/L (46-116); ASPARTATE AMINOTRANSFERASE 33 U/L (15-37); BILIRUBIN,TOTAL 0.9 mg/dL (0.2-1.0); CALCIUM, SERUM 7.5 mg/dL (8.5-10.1); CARBON DIOXIDE 22 mmol/L (21-32); CHLORIDE 106 mmol/L (98-107); CREATININE 2.8 mg/dL (0.6-1.3); GLUCOSE 112 mg/dL (74-106); MAGNESIUM 2.4 mg/dL (1.8-2.4); PHOSPHORUS 3.5 mg/dL (2.5-4.9); POTASSIUM 4.4 mmol/L (3.5-5.1); SODIUM SERUM 139 mmol/L (136-145); TOTAL PROTEIN, SERUM 5.7 g/dL (6.4-8.2); UREA NITROGEN, BLOOD 45 mg/dL (7-18)
[2019-08-30] MEDS: PROPOFOL 100 ML IV PRN ×3 (06:01→21:26)
[2019-08-30] MEDS: BLOOD SUGAR DIAGNOSTIC 1 EACH STRIP IN SCH ×3 (06:14→17:49)
--- NOTE | 2019-08-30 07:00 | NUR ---
RN NOTES RECEIVED PT ON BED , INTUBATED, TOLERATING CURRENT VENT SETTING WELL, NO DISTRESS NOTED, O2 SAT 97%, ON TELE A.FIB, HR IN 80'S , OGT CLAMPED , ESPERANZA.SOFT WRIST RESTRAINS ON FOR PT SAFETY, R UPPER ARM PICC LINE AND LEFT WRIST IV SITE G18, CLEAN,DRY AND INTACT, DIPRIVAN AT 20 MCG/KG/MIN, NS AT 40CC /HR RUNNING ,VARINDER AT 1 MCG/KG/MIN RUNNING, HAWKINS DRAINING TO GRAVITY WITH YELLOW ,CLOUDY URINE, SR UP x3, CALL LIGHT WITHIN EASY REACH, BED LOCKED AND IN LOWEST POSITION, CONTINUE TO MONITOR .
--- NOTE | 2019-08-30 07:30 | NUR ---
RN CLOSING NOTES: Pt resting in bed, intubated and sedated. Tolerating mechanical vent settings well. A-fib on tele monitor. OGT clamped. OUTSIDE EVENT SALES SPECIALIST restraints still in place. Removed and checked circulation per protocol throughout shift. RAKESH PICC line and LW #18 patent and flushing. Dressings c/d/i. Franklyn running at 1mcg titrated per protoco, and NS running at 40cc/hr. Solis cath in place and draining via gravity. All medications given as ordered. Safety measures in place. Endorsed to Norah for CORDELIA.
[2019-08-30] MEDS: AMIODARONE HCL 200 MG TABLET PO SCH ×3 (08:14→16:24)
[2019-08-30] MEDS: PANTOPRAZOLE 40 MG/PACK PACK NG SCH (08:15)
[2019-08-30] MEDS: APIXABAN 2.5 MG TABLET PO SCH ×2 (08:16→16:18)
[2019-08-30] MEDS: LEVOTHYROXINE SODIUM 100 MCG TABLET PO SCH (08:16)
[2019-08-30] MEDS: SOD FERRIC GLUC 125 MG in IV NS 0.9% 100 ML IV SCH (08:44)
[2019-08-30 08:48] LABS: ABG BASE EXCESS -4.6 mmol/L; ABG OXYGEN SATURATION 96.5 % (92.0-98.5); ABG PCO2 31.7 mmHg (35.0-45.0); ABG PH 7.402 (7.350-7.450); ABG PO2 90.4 mmHg (75.0-100.0); AaDO2 230.4 mmHg; COHb 0.3 % (0.5-1.5); MetHb 0.3 % (0.0-1.5); O2Hb 95.9 % (94.0-97.0); PEEP,BG 5 cm H2O; SITE, ABG Right Radial; VT, ABG 550 mL
[2019-08-30] MEDS: VANCOMYCIN 0.75 GM in IV D5W 250 ML IV SCH (10:17)
--- NOTE | 2019-08-30 12:00 | NUR ---
RN NOTS ORAL AND ET TUBE SUCTIONING DONE, VSS STABLE , CONTINUE TO MONITOR.
[2019-08-30] MEDS: IV NS 0.9% 1,000 ML IV PRN (16:28)
--- NOTE | 2019-08-30 18:48 | NUR ---
RN NOTES PT REMAINS INTUBATED ,SEDATED, ON DIPRIVAN AT 20 MCG/KG/MIN, VARINDER AT .8 MCG/KG/MIN. PT IS VERY SENSITIVE TO VARINDER,ON TELE A.FIB HR IN 70'S , OGT CLAMPED, R UPPER ARM PICC LINE SITE CLEAN, DRY AND INTACT, NS AT 40CC /HR RUNNING , HAWKINS DRAINING TO GRAVITY, SR UP x3, CALL LIGHT WITHIN EASY REACH, BED LOCKED AND IN LOWEST POSITION, WILL ENDORSE TO CODING COMPLIANCE AUDITOR NURSE FOR CONTINUITY OF CARE.
--- NOTE | 2019-08-30 19:49 | NUR ---
SUPPORTABILITY ENGINEER. INITIAL ASSESSMENT. RECEIVED THE PT REST ON THE BED. ORALLY INTUBATED. SEDATED WITH DIPRIVAN..ETT #7,LIP 20,AC 16,TV 550,FIO1 50%,PEEP 5. SAT 98%. ICT DEVELOPMENT MANAGER SHOWING A FIB CONTROLLED. IV RT UPPER ARM PICC LINE DIPRIVAN 20MCG/KG/MIN,VARINDER 0.8MCG.KG.MIN,NS 40ML/H,. OGT CLAMPED. FC PATENT. URINE DRAINING.ESPERANZA SOFT WRIST RESTRAINT CHECKED AND RELEASED. NO INJURY OR REDNESS NOTED. HOB ELEVATED, WILL CONTINUE TO MONITOR VITALS.
--- NOTE | 2019-08-30 21:00 | NUR ---
NETWORK AND THREAT SUPPORT SPECIALIST. MY ASSESSMENT SACRAL AND BUTTOCK SUSPECTED DTI. WOUND CONSULTATION AND [employer] MATTRESS ORDERED
[2019-08-30] MEDS: CEFEPIME 1 GM in IV D5W 50 ML IV SCH (21:21)
[2019-08-31] VITALS (54 sets, daily range): BP systolic 45–120; BP diastolic 25–73
[2019-08-31] MEDS: PROPOFOL 100 ML IV PRN ×4 (03:51→22:05)
[2019-08-31 04:48] LABS: BASOPHILS % (AUTO) 0.1 % (0.0-2.0); EOSINOPHILS % (AUTO) 0.7 % (0.0-6.0); HEMATOCRIT 29 % (33-45); HEMOGLOBIN 9.3 g/dL (11.5-14.8); LYMPHOCYTES % (AUTO) 3.5 % (20.0-44.0); MEAN CORPUSCULAR HGB CONC 32 g/dl (31.0-36.0); MEAN CORPUSCULAR VOLUME 87 fL (82-100); MONOCYTES # (AUTO) 1.3 /CMM (0.1-1.30); MONOCYTES % (AUTO) 4.5 % (2.0-12.0); NEUTROPHILS # (AUTO) 26.3 /CMM (1.8-8.9); NEUTROPHILS % (AUTO) 91.2 % (43.0-81.0); PLATELET COUNT (AUTO) 189 /CMM (150-450); RED BLOOD CELL COUNT(AUTO) 3.32 MIL/uL (4.0-5.2); WHITE BLOOD COUNT (AUTO) 28.9 K/uL (4.3-11.0)
--- NOTE | 2019-08-31 04:50 | NUR ---
RT NOTES PT RECEIVED ORALLY INTUBATED WITH 7.0 ETT SECURED @23CM [facility] ON CHARTED SETTINGS. NO SIGNS OF RESP DISTRESS NOTED THROUGHOUT SHIFT. AIRWAY PATENT AND SECURED. OUTCOMES ANALYST DONE. PT SUCTIONED. HME CHANGED. ALARMS SET AND AUDIBLE. VENT PLUGGED INTO TO RED OUTLET. WILL CONT TO MONITOR. Addendum: 08/31/19 at 0533 by SLICK MERINO RT Amended: Links added.
[2019-08-31 05:08] LABS: CALCIUM, SERUM 7.8 mg/dL (8.5-10.1); CARBON DIOXIDE 22 mmol/L (21-32); CHLORIDE 107 mmol/L (98-107); CREATININE 2.3 mg/dL (0.6-1.3); GLUCOSE 117 mg/dL (74-106); MAGNESIUM 2.2 mg/dL (1.8-2.4); PHOSPHORUS 3.3 mg/dL (2.5-4.9); POTASSIUM 4.2 mmol/L (3.5-5.1); SODIUM SERUM 140 mmol/L (136-145); UREA NITROGEN, BLOOD 42 mg/dL (7-18)
[2019-08-31] MEDS: BLOOD SUGAR DIAGNOSTIC 1 EACH STRIP IN SCH ×5 (05:37→23:33)
[2019-08-31] MEDS: PHENYLEPHRINE 100 MG in IV NS 0.9% 240 ML IV PRN ×2 (06:32→18:41)
--- NOTE | 2019-08-31 07:00 | NUR ---
INDUSTRIAL RELATIONS OFFICER. REMAINING SAME VENT SETTING TOLERATED WELL. SAT 98%, NO ACUTE DISTRESS NOTED. COPYMAN SHOWING A FIB. CONTROLLED. HOB ELEVATED. IV RT UPPER ARM PICC LINE IVF NS 40ML/H.DIPRIVAN 40MCG/KG/MIN.VARINDER 1MCG/KG/MIN,DIPRIVAN 20MCG/KG/MIN, FC PATENT. URINE DRAINING. WILL CONTINUE TO MONITOR VITALS.
--- NOTE | 2019-08-31 08:16 | NUR ---
TEACHING FELLOW. WOUND NURSE INDY SEEN THE PT.
--- NOTE | 2019-08-31 08:25 | NUR ---
WOUND CARE CONSULT: PT PRESENTS WITH MULTIPLE AREAS OF BRUISING, SKIN DISCOLORATION, REDNESS TO LOWER LEGS WITH EDEMA AND INTACT DEEP TISSUE INJURIES TO SACRUM AND BILATERAL BUTTOCKS. PT NOTED TO HAVE MULTIPLE CO-MORBIDITIES INCLUDING RESPIRATORY FAILURE, CURRENTLY ON VENTILATOR, PREVIOUS RAPID DETERIORATION ON PRESSORS WITH VENTILATOR SUPPORT. RECOMMENDATIONS MADE FOR SKIN PROTECTION AND WOUND CARE. DISCUSSED WITH NURSING STAFF AND DISTRICT SALES MANAGER. [facility] AIR BED ORDERED. WILL SEE PRN. CASTELLON IN AGREEMENT WITH PLAN OF CARE. Addendum: 08/31/19 at 0828 by INDY BETHEA WNDNU Amended: Links added.
[2019-08-31] MEDS: SOD FERRIC GLUC 125 MG in IV NS 0.9% 100 ML IV SCH (08:41)
[2019-08-31] MEDS: AMIODARONE HCL 200 MG TABLET PO SCH ×3 (08:42→17:04)
[2019-08-31] MEDS: LEVOTHYROXINE SODIUM 100 MCG TABLET PO SCH (08:42)
[2019-08-31] MEDS: PANTOPRAZOLE 40 MG/PACK PACK NG SCH (08:42)
[2019-08-31] MEDS: APIXABAN 2.5 MG TABLET PO SCH ×2 (08:43→17:03)
[2019-08-31] MEDS: VANCOMYCIN 0.75 GM in IV D5W 250 ML IV SCH (09:54)
--- NOTE | 2019-08-31 10:16 | NUR ---
STEEL DETAILER, VENT OXYGEN NOW 40%. REMAINING OTHER SETTINGS SAME. SAT 98%. NO ACUTE DISTRESS NOTED. BROKE BEATER MACHINE OPERATOR SHOWING AFIB. CONTROLLED. FC PATENT. URINE DRAINING. ESPERANZA SOFT WRIST RESTRAINT CHECKED AND RELEASED. NO INJURY OR REDNESS NOTED. OGT CLAMPED. HOB ELEVATED. CVP LINE CONNECTED TO PICC LINE. DIPRIVAN 20MCG/KG/MIN,VARINDER 1MCG/KG/MIN,NS 40 ML/H. REPORT GIVEN TO YOVANNY LI FOR CORDELIA.
--- NOTE | 2019-08-31 10:16 | NUR ---
RN/ICU-RECEIVED PT. FROM GUILLERMO REYES. PT. POST SEDATED ON DIPRIVAN DRIP AT 20MCG/KG/MIN. NO CONTRERAS. ON ESPERANZA. SOFT WRIST RESTRAINTS ON PER PROTOCOL. ON THE VENT PER ETT, ON AC MODE. SATS.-98%. EKG ATRIAL FIBRILLATION W/ HR-76/MIN. BP-75/46. ON VARINDER SYNEPHRINE DRIP AT 1MCG/KG/MIN. WILL TITRATE ACCORDINGLY TO KEEP SBP>90. PT. IS A FULL CODE. AFEBRILE. NO S/S OF PAIN OR DISTRESS.
--- NOTE | 2019-08-31 11:00 | NUR ---
RN/ICU-LUD[facility] FROM [facility] CALLED UPDATED PT. STATUS.SAME WILL TALK TO [facility] JAILKEEPER.
[2019-08-31] MEDS: INSULIN REGULAR, HUMAN 100 UNIT/ML 3 ML VIAL SQ PRN (11:46)
[2019-08-31] MEDS: IV NS 0.9% 1,000 ML IV PRN (18:49)
[2019-08-31] MEDS: CEFEPIME 1 GM in IV D5W 50 ML IV SCH (20:40)
--- NOTE | 2019-08-31 22:44 | NUR ---
RN/ICU- PT. DAUGHTER ILIANA ( [phone]) REQUESTING TO TAKE PICTURE OF PT. NURSING PAYROLL ANALYST SELMA Chirinos MADE AWARE, PHOTP OF PT. WAS SENT TO DAUGHTER VIA TEXT, RESPONDED THAT SHE RECEIVED THE PICTURE.
[2019-09-01] VITALS (84 sets, daily range): BP systolic 59–125; BP diastolic 33–70
[2019-09-01] MEDS: PROPOFOL 100 ML IV PRN ×3 (04:16→18:22)
[2019-09-01 05:14] LABS: BASOPHILS # (AUTO) 0.1 /CMM (0.0-0.2); BASOPHILS % (AUTO) 0.3 % (0.0-2.0); EOSINOPHILS % (AUTO) 0.9 % (0.0-6.0); HEMATOCRIT 28 % (33-45); HEMOGLOBIN 8.9 g/dL (11.5-14.8); LYMPHOCYTES # (AUTO) 1.1 /CMM (0.8-4.8); LYMPHOCYTES % (AUTO) 3.4 % (20.0-44.0); MEAN CORPUSCULAR HGB CONC 32 g/dl (31.0-36.0); MEAN CORPUSCULAR VOLUME 88 fL (82-100); MONOCYTES # (AUTO) 2.1 /CMM (0.1-1.30); MONOCYTES % (AUTO) 6.3 % (2.0-12.0); NEUTROPHILS % (AUTO) 89.1 % (43.0-81.0); PLATELET COUNT (AUTO) 214 /CMM (150-450); RED BLOOD CELL COUNT(AUTO) 3.15 MIL/uL (4.0-5.2)
[2019-09-01 05:19] LABS: ALANINE AMINOTRANSFERASE 18 U/L (12-78); ALBUMIN 1.5 g/dL (3.4-5.0); ALKALINE PHOSPHATASE 93 U/L (46-116); ASPARTATE AMINOTRANSFERASE 27 U/L (15-37); BILIRUBIN,TOTAL 0.7 mg/dL (0.2-1.0); CALCIUM, SERUM 7.5 mg/dL (8.5-10.1); CARBON DIOXIDE 25 mmol/L (21-32); CHLORIDE 108 mmol/L (98-107); GLUCOSE 109 mg/dL (74-106); MAGNESIUM 2.1 mg/dL (1.8-2.4); PHOSPHORUS 3.5 mg/dL (2.5-4.9); POTASSIUM 4.2 mmol/L (3.5-5.1); SODIUM SERUM 140 mmol/L (136-145); TOTAL PROTEIN, SERUM 5.8 g/dL (6.4-8.2); UREA NITROGEN, BLOOD 40 mg/dL (7-18)
[2019-09-01 05:46] LABS: WHITE BLOOD COUNT (AUTO) 32.5 K/uL (4.3-11.0)
[2019-09-01] MEDS: BLOOD SUGAR DIAGNOSTIC 1 EACH STRIP IN SCH ×3 (06:00→18:22)
[2019-09-01 06:12] LABS: LYMPHOCYTES % (MANUAL) 4 % (16-48); NEUTROPHILS % (MANUAL) 90 (42-76)
[2019-09-01 06:13] LABS: MONOCYTES % (MANUAL) 6 % (0-11.0)
--- NOTE | 2019-09-01 06:19 | NUR ---
RN/ICU-REMAINS SEDATED ON DIPRIVAN GGT AT 20MCG/KG/MIN, W/ ESPERANZA. SOFT WRIST RESTRAINTS ON, ON THE VENT PER ETT, SATS.-98% EKG ATRIAL FIB W CVR. BP-105/58. AFEBRILE. NO S/S OF PAIN
--- NOTE | 2019-09-01 07:40 | NUR ---
ICU/RN PT IS INTUBATED ON THE VENT ,AC MODE,SAT O2-100%.ON NEOSYNEPHRINE DRIP.SEDATED WITH PROPOFOL.IV -RIGHT PICC LINE.CVP LINE-8.GENERALIZED EDEMA PRESENT.F/C IN PLACE,DRAINING WITH YELLOW URINE.REDNESS ON JYOTI AREA AND ABDOMINAL FOLDS NOTED.
[2019-09-01] MEDS: PHENYLEPHRINE 100 MG in IV NS 0.9% 240 ML IV PRN (08:51)
[2019-09-01] MEDS: LEVOTHYROXINE SODIUM 100 MCG TABLET PO SCH (08:52)
[2019-09-01] MEDS: AMIODARONE HCL 200 MG TABLET PO SCH ×3 (08:52→16:20)
[2019-09-01] MEDS: PANTOPRAZOLE 40 MG/PACK PACK NG SCH (08:52)
[2019-09-01] MEDS: APIXABAN 2.5 MG TABLET PO SCH ×2 (08:53→16:20)
[2019-09-01] MEDS: SOD FERRIC GLUC 125 MG in IV NS 0.9% 100 ML IV SCH (09:20)
[2019-09-01] MEDS: VANCOMYCIN 0.75 GM in IV D5W 250 ML IV SCH (09:34)
--- NOTE | 2019-09-01 11:00 | NUR ---
ICU/RN UNABLE TO TOLERATE SIMV MODE .TACHYCARDIC AND TACHYPNEIC.AWAKE,NOT FOLLOWS COMMAND.PLACED BACK ON PROPOFOL.AND AC MODE.CONTINUE MONITORING
--- NOTE | 2019-09-01 17:00 | NUR ---
ICU/RN PM CARE PROVIDED.DUE MEDS ARE GIVEN ORDERED.STILL ON PROPOFOL DRIP.AND NEOSYNEPHRINE DRIP.
--- NOTE | 2019-09-01 19:00 | NUR ---
RECEIVED PATIENT ORALLY INTUBATED ON AC MODE TO THE VENTILATOR,ON MODERATE SEDATION WITH PROPOFOL DRIP , RESPONDS TO PAIN, + COUGH AND GAG. ON NEOSYNEPHRINE DRIP FOR BP SUPPORT, OGT WITH ON GOING TUBE FEEDING ,TOLERATING WELL.NOT IN ANY DISTRESS,BREATHING REGULAR,NON LABORED.
--- NOTE | 2019-09-01 20:26 | NUR ---
RECEIVED PT INTUBATED 7.0 ETT SECURED AT 21CM AT THE LIP. PT TOLERATING VENT SETTINGS. SX'D FOR MOD AMT OF THICK YELLOW SECRETIONS. VENT ALARMS SET AND AUDIBLE. CONTINUE [facility] VENT SUPPORT. Addendum: 09/01/19 at 2026 by LEONARD BERKOWITZ RT Amended: Links added.
[2019-09-01] MEDS: CEFEPIME 1 GM in IV D5W 50 ML IV SCH (21:46)
[2019-09-01] MEDS: IV NS 0.9% 1,000 ML IV PRN (23:15)
[2019-09-02] VITALS (88 sets, daily range): BP systolic 72–130; BP diastolic 39–69
--- NOTE | 2019-09-02 | NUR ---
STATUS UNCHANGED,STABLE ,STILL ON NEOSYNEPHRINE FRO BP SUPPORT AND ON PROPOFOL.
[2019-09-02] MEDS: PROPOFOL 100 ML IV PRN ×4 (00:37→20:05)
[2019-09-02] MEDS: BLOOD SUGAR DIAGNOSTIC 1 EACH STRIP IN SCH ×5 (00:43→23:32)
[2019-09-02] MEDS: PHENYLEPHRINE 100 MG in IV NS 0.9% 240 ML IV PRN ×2 (01:28→13:55)
--- NOTE | 2019-09-02 04:00 | NUR ---
REMAINS STABLE,OCCASIONALLY AWAKENS COUGHING /GAGGING
[2019-09-02 04:50] LABS: CALCIUM, SERUM 7.5 mg/dL (8.5-10.1); CREATININE 1.3 mg/dL (0.6-1.3); POTASSIUM 3.9 mmol/L (3.5-5.1)
--- NOTE | 2019-09-02 07:00 | NUR ---
RN NOTES RECEIVED PATIENT ON BED, ORALLY INTUBATED , SEDATED, ON PROPOFOL AT 20 MCG/KG/MIN. TOILETING CURRENT VENT SETTING WELL, O2 SAT WNL, ON VARINDER GTT AT 1 MCG/KG/MIN, FOR BP SUPPORT, ON TELE A.FIB, HR IN 70'S , OGT WITH ON GOING TUBE FEEDING GLUCERNA AT 30 CC /HR RUNNING ,TOLERATING WELL.NOT NO DISTRESS NOTED,HAWKINS DRINING TO GRAVITY, R UPPER ARM PICC LINE SITE CLEAN, DRY AND INTACT, SR UP x3, CALL LIGHT WITHIN EASY REACH, BED LOCKED AND IN LOWEST POSITION, CONTINUE TO MONITOR .
[2019-09-02] MEDS: LEVOTHYROXINE SODIUM 100 MCG TABLET PO SCH (08:22)
[2019-09-02] MEDS: AMIODARONE HCL 200 MG TABLET PO SCH (08:23)
[2019-09-02] MEDS: PANTOPRAZOLE 40 MG/PACK PACK NG SCH (08:23)
[2019-09-02] MEDS: APIXABAN 2.5 MG TABLET PO SCH (08:24)
[2019-09-02 08:37] LABS: ABG BASE EXCESS -5.7 mmol/L; ABG OXYGEN SATURATION 97.3 % (92.0-98.5); ABG PH 7.383 (7.350-7.450); ABG PO2 102.1 mmHg (75.0-100.0); AaDO2 146.3 mmHg; O2Hb 97.3 % (94.0-97.0); SITE, ABG Right Radial; VENT MODE, BG AC 550 16 +5 40%
--- NOTE | 2019-09-02 10:00 | NUR ---
RN NOTES ORAL AND ET TUBE SUCTION DONE, CONTINUE TO MONITOR.
[2019-09-02] MEDS: VANCOMYCIN 0.75 GM in IV D5W 250 ML IV SCH (10:25)
[2019-09-02] MEDS ORDERED: MAGNESIUM HYDROXIDE 30 ML UDC NG PRN (11:30)
[2019-09-02] MEDS ORDERED: MAG HYDROX/AL HYDROX/SIMETH 30 ML UDC NG PRN (11:30)
[2019-09-02] MEDS ORDERED: ACETAMINOPHEN 650 MG/20.3 ML UDC NG PRN (11:30)
[2019-09-02] MEDS: INSULIN REGULAR, HUMAN 100 UNIT/ML 3 ML VIAL SQ PRN (11:33)
[2019-09-02] MEDS: AMIODARONE HCL 200 MG TABLET NG SCH ×2 (12:55→16:24)
[2019-09-02] MEDS: GLUCERNA 1.2 1,000 ML BOTTLE NG PRN (13:00)
[2019-09-02] MEDS: NOREPINEPHRINE 32 MG in IV NS 0.9% 218 ML IV PRN (13:43)
--- NOTE | 2019-09-02 15:00 | NUR ---
RN NOTES DR OCHOA NOTIFED REGARDING TRIGLYCERIDE 185, NO NEW ORDER GIVEN .CONTINUE TO MONITOR .
[2019-09-02] MEDS: APIXABAN 2.5 MG TABLET NG SCH (16:24)
--- NOTE | 2019-09-02 18:00 | NUR ---
RN NOTES CO REMAINS INTUBATED AND SEDATED, ON DIPRIVAN AT 25 MCG/KG/ MIN AT THIS TIME, VARINDER GTT AT .7MCG/KG/MIN SHRUTHI MCNAMARA DRINING TO GRAVITY, R UPPER ARM PICC LINE SITE CLEAN, DRY AND INTACT, SR UP x3, CALL LIGHT WITHIN EASY REACH, BED LOCKED AND IN LOWEST POSITION, WILL ENDOSE TO SEAM STAY STITCHER NURSE FOR CONTINUITY OF CARE.
--- NOTE | 2019-09-02 19:30 | NUR ---
CORNICE MAKER INITIAL SHIFT NOTES RECEIVED PATIENT IN BED, ORALLY INTUBATED ON MECHANICAL VENT, SEDATED ON DIPRIVAN DRIP. RAKESH PICC PATENT AND INTACT, ONGOING NEOSYNEPHRINE DRIP @ 0.7MCG/KG/MIN, DIPRIVAN DRIP @ 25MCG/KG/MIN. ONGOING TUBE FEEDING AT PRESCRIBED RATE, TOLERATING WELL, MINIMAL GASTRIC RESIDUALS. HOB KEPT ELEVATED. CONTINUE TO CLOSELY MONITOR
--- NOTE | 2019-09-02 19:40 | NUR ---
PT RECEIVED ORALLY INTUBATED WITH 7.0 ETT SECURED @21 CM [facility] LIP LINE [facility] WITH NOTED SETTINGS. NO RESP DISTRESS NOTED AT THIS TME. AIRWAY PATENT AND SECURED. AGER OPERATOR DONE. PT SUCTIONED. VENT ALARMS SET AND AUDIBLE. VENT PLUGGED INTO TO RED OUTLET. WILL CONT TO MONITOR.
[2019-09-02] MEDS: MEROPENEM 500 MG in IV NS 0.9% 50 ML IV SCH (20:01)
[2019-09-03] VITALS (84 sets, daily range): BP systolic 65–136; BP diastolic 40–86
[2019-09-03] MEDS: PROPOFOL 100 ML IV PRN ×4 (00:14→18:53)
[2019-09-03] MEDS: IV NS 0.9% 1,000 ML IV PRN (04:04)
[2019-09-03 04:29] LABS: BASOPHILS # (AUTO) 0.1 /CMM (0.0-0.2); BASOPHILS % (AUTO) 0.5 % (0.0-2.0); EOSINOPHILS % (AUTO) 1.8 % (0.0-6.0); HEMATOCRIT 27 % (33-45); HEMOGLOBIN 8.4 g/dL (11.5-14.8); LYMPHOCYTES # (AUTO) 1.3 /CMM (0.8-4.8); LYMPHOCYTES % (AUTO) 5.8 % (20.0-44.0); MEAN CORPUSCULAR HGB CONC 32 g/dl (31.0-36.0); MEAN CORPUSCULAR VOLUME 89 fL (82-100); MONOCYTES # (AUTO) 1.8 /CMM (0.1-1.30); NEUTROPHILS # (AUTO) 19.2 /CMM (1.8-8.9); NEUTROPHILS % (AUTO) 83.9 % (43.0-81.0); PLATELET COUNT (AUTO) 243 /CMM (150-450); WHITE BLOOD COUNT (AUTO) 22.9 K/uL (4.3-11.0)
[2019-09-03 04:38] LABS: CALCIUM, SERUM 7.5 mg/dL (8.5-10.1); CREATININE 1.2 mg/dL (0.6-1.3); POTASSIUM 3.9 mmol/L (3.5-5.1)
[2019-09-03] MEDS: BLOOD SUGAR DIAGNOSTIC 1 EACH STRIP IN SCH ×3 (05:54→18:03)
--- NOTE | 2019-09-03 06:55 | NUR ---
TRANSPORT RN NOTES NO ACUTE CHABNGES THROUGHOUT THE SHIFT. PROPOFOL DRIP REMAINS AT 25MCG/KG/MIN. NEOSYNEPHRINE DRIP TITRATED TO 0.6MCG/KG/MIN. PATIENT REMAINS ORALLY INTUBATED ON MECHANICAL VENTILATION. WILL ENDORSE THE PATIENT TO THE AM SHIFT NURSE FOR CONTINUITY OF CARE
--- NOTE | 2019-09-03 07:00 | NUR ---
RN NOTES RECEIVED PATIENT ON BED, ORALLY INTUBATED , SEDATED, ON PROPOFOL AT 25 MCG/KG/MIN. TOILETING CURRENT VENT SETTING WELL, O2 SAT WNL, ON VARINDER GTT AT .6 MCG/KG/MIN, FOR BP SUPPORT, OGT WITH ON GOING TUBE FEEDING GLUCERNA AT 30 CC /HR RUNNING ,TOLERATING WELL. NO DISTRESS NOTED,HAWKINS DRINING TO GRAVITY, R UPPER ARM PICC LINE SITE CLEAN, DRY AND INTACT, SR UP x3, CALL LIGHT WITHIN EASY REACH, BED LOCKED AND IN LOWEST POSITION, CONTINUE TO MONITOR .
[2019-09-03] MEDS: MEROPENEM 500 MG in IV NS 0.9% 50 ML IV SCH ×2 (07:43→21:20)
[2019-09-03] MEDS: AMIODARONE HCL 200 MG TABLET NG SCH ×3 (08:05→16:25)
[2019-09-03] MEDS: PANTOPRAZOLE 40 MG/PACK PACK NG SCH (08:05)
[2019-09-03] MEDS: APIXABAN 2.5 MG TABLET NG SCH ×2 (08:06→16:26)
[2019-09-03] MEDS ORDERED: LEVOTHYROXINE SODIUM 100 MCG TABLET NG SCH (09:00)
[2019-09-03] MEDS ORDERED: LORAZEPAM INJ 2 MG/ML VIAL IV PRN (09:00)
[2019-09-03] MEDS: VANCOMYCIN 0.75 GM in IV D5W 250 ML IV SCH (09:19)
[2019-09-03] MEDS: PHENYLEPHRINE 100 MG in IV NS 0.9% 240 ML IV PRN ×2 (09:24→16:02)
--- NOTE | 2019-09-03 10:00 | NUR ---
RN NOTES PT FAILED WEANING TRIAL , PT BACK ON PROPOFOL PER DR PINTO ORDER , CONTINUE TO MONITOR.
--- NOTE | 2019-09-03 12:00 | NUR ---
RN NOTES ORAL AND ET TUBE SUCTIONING DONE, VSS STABLE, CONTINUE TO MONITOR .
[2019-09-03] MEDS: INSULIN REGULAR, HUMAN 100 UNIT/ML 3 ML VIAL SQ PRN (12:20)
[2019-09-03] MEDS: GLUCERNA 1.2 1,000 ML BOTTLE NG PRN (14:37)
--- NOTE | 2019-09-03 15:00 | NUR ---
RN NOTES CALL RECEIVED FROM [facility] THAT PT WILL BE TRANSFERRED TO [facility] SOON THERE IS AN ACCEPTING DOCTOR AND A AVAILABLE ROOM.
[2019-09-03] MEDS: CLOTRIMAZOLE 1% 15 GM TUBE TP SCH ×2 (16:28→16:32)
--- NOTE | 2019-09-03 18:26 | NUR ---
RN NOTES PT REMANIS INTUBATED AND SEDATED, ON DIPRIVAN AND VARINDER GTT , ON TELE A.FIB HR IN 70'S , HAWKINS DRAINING TO GRAVITY, TOLERAINT TF AT 30 CC /HR , NO RESIDUAL NOTED, R UPPER ARM PICC LINE SITE CLEAN, DRY AND INTACT, SR UP x3, CALL LIGHT WITHIN EASY REACH, BED LOCKED AND IN LOWEST POSITION, WILL ENDORSE TO FORKLIFT MECHANIC NURSE FOR CONTINUITY OF CARE .
--- NOTE | 2019-09-03 23:42 | NUR ---
PT TAKEN BY TRANSPORT TO [facility]. RPEOT GIVEN . PT REMAINS INTUBATED ON DIPRIVAN AND VARINDER. REPORT GIVEN TO REAGENT TENDER HELPER. PT SENT WITH [employer]ANK[employer]. 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
== END 2019-09-03 23:45 | disposition short-term general hospital (02) | DRG 870 ==
LOC: ER 06:37 → ICU 12:49 → SAOV 13:20 → ICU 13:28
PROVIDERS: ADMIT Hospitalist; ATTEND Internal Medicine
PROC: 02HV33Z Insertion of Infusion Device into Superior Vena Cava, Percutaneous Approach (ICD-10-PCS; principal; 2019-08-27)
PROC: 0BH17EZ Insertion of Endotracheal Airway into Trachea, Via Natural or Artificial Opening (ICD-10-PCS; principal; 2019-08-27)
PROC: B548ZZA Ultrasonography of Superior Vena Cava, Guidance (ICD-10-PCS; principal; 2019-08-27)
PROC: 5A1955Z Respiratory Ventilation, Greater than 96 Consecutive Hours (ICD-10-PCS; principal; 2019-08-27)
DX: A41.9 Sepsis, unspecified organism (principal); N17.0 Acute kidney failure with tubular necrosis; R65.21 Severe sepsis with septic shock; I21.4 Non-ST elevation (NSTEMI) myocardial infarction; E43 Unspecified severe protein-calorie malnutrition; G92 Toxic encephalopathy; J96.01 Acute respiratory failure with hypoxia; J96.02 Acute respiratory failure with hypercapnia; J18.9 Pneumonia, unspecified organism; I47.1 Supraventricular tachycardia; E44.0 Moderate protein-calorie malnutrition; N39.0 Urinary tract infection, site not specified; J90 Pleural effusion, not elsewhere classified; Z68.43 Body mass index [BMI] 50.0-59.9, adult; E87.2 Acidosis; J98.11 Atelectasis; E87.1 Hypo-osmolality and hyponatremia; L03.116 Cellulitis of left lower limb; L03.115 Cellulitis of right lower limb; E11.22 Type 2 diabetes mellitus with diabetic chronic kidney disease; I12.9 Hypertensive chronic kidney disease with stage 1 through stage 4 chronic kidney disease, or unspecified chronic kidney disease; N18.9 Chronic kidney disease, unspecified; Z79.899 Other long term (current) drug therapy; Z87.442 Personal history of urinary calculi; Z87.891 Personal history of nicotine dependence; Z79.01 Long term (current) use of anticoagulants; E03.9 Hypothyroidism, unspecified; E66.01 Morbid (severe) obesity due to excess calories; L30.4 Erythema intertrigo; G47.33 Obstructive sleep apnea (adult) (pediatric); I48.91 Unspecified atrial fibrillation; H91.90 Unspecified hearing loss, unspecified ear; D64.9 Anemia, unspecified; B96.4 Proteus (mirabilis) (morganii) as the cause of diseases classified elsewhere; Z98.890 Other specified postprocedural states; E78.5 Hyperlipidemia, unspecified; I89.0 Lymphedema, not elsewhere classified; E80.6 Other disorders of bilirubin metabolism; E87.70 Fluid overload, unspecified; L89.326 Pressure-induced deep tissue damage of left buttock; L89.316 Pressure-induced deep tissue damage of right buttock; W18.30XA Fall on same level, unspecified, initial encounter; Y92.002 Bathroom of unspecified non-institutional (private) residence as the place of occurrence of the external cause; I95.9 Hypotension, unspecified
CPT/HCPCS: 31720; 36415; 36600; 70450-TC; 71045-TC; 76770-TC; 80048-TC; 80053-TC; 80061-TC; 80076-TC; 80202-TC; 81000-TC; 82550-TC; 82553; 82570-TC; 82728-TC; 82803-TC; 82962-TC; 83540-TC; 83605-TC; 83735-TC; 83880; 83970; 84100-TC; 84155; 84155-TC; 84165; 84300-TC; 84439-TC; 84443-TC; 84478-TC; 84484-TC; 85025-TC; 85730-TC; 87040-TC; 87070-TC; 87081-TC; 87086-TC; 87186-TC; 93307-TC; 94002-TC; 94003-TC; 94760-TC; A4216; C1751; C9113; G0378; G0480; J0153; J0282; J0692; J0696; J1160; J1644; J1815; J2060; J2185; J2370; J2916; J3370; J3475; J3490; J7030; J7040; J7050; J7060